=== PATIENT | male | born 1945 | race Asian ===

== ENCOUNTER 2019-01-22 10:26 | Emergency (ER) | payer SELFPAY ==
[~2019-01-22] VITALS: Ht 170.2 cm; Wt 59.0 kg
[2019-01-22 10:30] VITALS: Ht 170.2 cm; Wt 59.0 kg
[2019-01-22 14:19] VITALS: BP 141/78
== END 2019-01-22 14:20 | disposition home or self-care (01) ==
LOC: ED 10:26
DX: S16.1XXA Strain of muscle, fascia and tendon at neck level, initial encounter (principal); S09.8XXA Other specified injuries of head, initial encounter; R03.0 Elevated blood-pressure reading, without diagnosis of hypertension; I10 Essential (primary) hypertension; E11.9 Type 2 diabetes mellitus without complications; V49.9XXA Car occupant (driver) (passenger) injured in unspecified traffic accident, initial encounter; Y93.I9 Activity, other involving external motion; Y92.413 State road as the place of occurrence of the external cause; Y99.8 Other external cause status
CPT/HCPCS: 82962; 90714